=== PATIENT | male | born 1985 | race Two or more races ===

== ENCOUNTER 2019-11-07 02:44 | Emergency (ER) | payer MEDICAID ==
[~2019-11-07] VITALS: Ht 160 cm; Wt 143.8 kg
[2019-11-07 03:31] VITALS: BP 118/73
== END 2019-11-07 07:15 | disposition left against medical advice (07) ==
LOC: ER 02:45
DX: R06.02 Shortness of breath (principal); Z53.21 Procedure and treatment not carried out due to patient leaving prior to being seen by health care provider
CPT/HCPCS: 71046